=== PATIENT | male | born 1990 | race Caucasian/White ===

== ENCOUNTER 2017-10-30 20:31 | Emergency (ER) | payer BC ==
[2017-10-30] MEDS ORDERED: Ondansetron 4 MG/2 ML SDV IVPUSH ONE (20:53)
[2017-10-30] MEDS ORDERED: Ketorolac 30 MG/ML SDV IVPUSH ONE (20:55)
[2017-10-30] MEDS ORDERED: HYDROmorphone 0.5 MG/0.5 ML SYRINGE IVPUSH ONE ×2 (20:55→22:46)
[2017-10-30] MEDS ORDERED: Sodium Chloride 0.9% 1,000 ML IV SCH (21:00)
[2017-10-30] MEDS: Sodium Chloride 0.9% 10 ML Syringe FLUSH PRN ×2 (21:19→22:10)
--- NOTE | 2017-10-30 22:26 | EDM.PDOC ---
ED HPI GENERAL MEDICAL PROBLEM - General Chief Complaint: Abdominal Pain Stated Complaint: RIGHT SIDE PAIN Time Seen by Provider: 10/30/17 20:44 Source of Information: Reports: Patient History Limitations: Reports: No Limitations - History of Present Illness INITIAL COMMENTS - FREE TEXT/NARRATIVE: The patient presents with right lower abdominal pain, right flank pain that radiates to his right testicle. He has chills and subjective fever. He has nausea and vomiting. He has no history of kidney stones. He has no chest pain or shortness of breath. He still has his gallbladder and appendix. Onset: Sudden Duration: Hour(s): (2) Location: Reports: Abdomen (right lower and flank pain) Quality: Reports: Sharp Severity: Severe Improves with: Reports: None Worsens with: Reports: None Associated Symptoms: Reports: Nausea/Vomiting. Denies: Chest Pain, Fever/Chills , Headaches, Shortness of Breath Right Lower Abdominal Pain Score (Numeric/FACES): 8 - Related Data Allergies Allergy/AdvReac Type Severity Reaction Status Date / Time No Known Allergies Allergy Verified 10/30/17 20:38 Home Meds: Home Meds . [No Known Home Meds] 10/30/17 [History] Past Medical History - Past Surgical History GI Surgical History: Reports: Other (See Below) Other GI Surgeries/Procedures: hemmorhoids lanced Social & Family History - Tobacco Use Smoking Status *Q: Never Smoker - Caffeine Use Caffeine Use: Reports: Coffee, Soda - Recreational Drug Use Recreational Drug Use: No ED ROS GENERAL - Review of Systems Review Of Systems: See Below Constitutional: Reports: Fever, Chills HEENT: Reports: No Symptoms Respiratory: Reports: No Symptoms Cardiovascular: Reports: No Symptoms Endocrine: Reports: No Symptoms GI/Abdominal: Reports: Abdominal Pain, Nausea, Vomiting. Denies: Diarrhea : Reports: Flank Pain (right side). Denies: Dysuria, Frequency, Urgency Musculoskeletal: Reports: No Symptoms Skin: Reports: No Symptoms ED EXAM, GI/ABD - Physical Exam Exam: See Below Exam Limited By: No Limitations General Appearance: Alert, No Apparent Distress Ears: Normal External Exam Nose: Normal Inspection Head: Atraumatic, Normocephalic Neck: Normal Inspection Respiratory/Chest: No Respiratory Distress, Lungs Clear, Normal Breath Sounds Cardiovascular: Regular Rate, Rhythm, No Edema, No Murmur GI/Abdominal Exam: Soft, No Organomegaly, No Mass, Tender (Mild tenderness to the right lower abdomen) Back Exam: CVA Tenderness (R) (Mild) Extremities: Normal Inspection Course - Vital Signs Last Recorded V/S: Last Vital Signs Temp 99.2 F 10/30/17 20:36 Pulse 80 10/30/17 20:36 Resp 18 10/30/17 20:36 BP 168/147 H 10/30/17 20:36 Pulse Ox 100 10/30/17 20:36 - Orders/Labs/Meds Orders: Active Orders 24 hr Category Date Time Status Peripheral IV Care [RC] . DIRECTED Care 10/30/17 20:54 Active Abdomen Pelvis wo Cont [CT] Stat Exams 10/30/17 20:53 Taken HYDROmorphone [Dilaudid] Med 10/30/17 22:46 Once 0.5 mg IVPUSH ONETIME ONE Sodium Chloride 0.9% [Normal Saline] 1,000 ml Med 10/30/17 21:00 Active IV ASDIRECTED Sodium Chloride 0.9% [Saline Flush] Med 10/30/17 20:53 Active 10 ml FLUSH ASDIRECTED PRN ED Antiemetic Medication Reflex [OM.PC] Stat Oth 10/30/17 20:53 Ordered Peripheral IV Insertion Adult [OM.PC] Stat Oth 10/30/17 20:53 Ordered Medication Orders Sodium Chloride (Normal Saline) 1,000 mls @ 125 mls/hr IV ASDIRECTED DENILSON Last Admin: 10/30/17 21:17 Dose: 125 mls/hr Sodium Chloride (Saline Flush) 10 ml FLUSH ASDIRECTED PRN PRN Reason: Keep Vein Open Last Admin: 10/30/17 22:10 Dose: 10 ml Admin: 10/30/17 21:19 Dose: 10 ml Labs: Laboratory Tests 10/30/17 10/30/17 10/30/17 Range/Units 21:10 21:10 22:25 WBC 5.39 (4.23-9.07) K/mm3 RBC 4.83 (4.63-6.08) M/mm3 Hgb 14.3 (13.7-17.5) gm/L Hct 41.0 (40.1-51.0) % MCV 84.9 (79.0-92.2) fl MCH 29.6 (25.7-32.2) pg MCHC 34.9 (32.2-35.5) g/dl RDW Std Deviation 40.8 (35.1-43.9) fL Plt Count 154 L (163-337) K/mm3 MPV 10.4 (9.4-12.3) fl Neut % (Auto) 54.7 (34.0-67.9) % Lymph % (Auto) 34.3 (21.8-53.1) % [place] % (Auto) 8.0 (5.3-12.2) % Eos % (Auto) 2.2 (0.8-7.0) Baso % (Auto) 0.6 (0.1-1.2) % Neut # (Auto) 2.95 (1.78-5.38) K/mm3 Lymph # (Auto) 1.85 (1.32-3.57) K/mm3 [place] # (Auto) 0.43 (0.30-0.82) K/mm3 Eos # (Auto) 0.12 (0.04-0.54) K/mm3 Baso # (Auto) 0.03 (0.01-0.08) K/mm3 Sodium 141 (136-145) mEq/L Potassium 3.6 (3.5-5.1) mEq/L Chloride 105 (98-107) mEq/L Carbon Dioxide 26 (21-32) mEq/L Anion Gap 13.6 (5-15) BUN 9 (7-18) mg/dL Creatinine 1.1 (0.7-1.3) mg/dL Est Cr Clr Drug Dosing 97.93 mL/min Estimated GFR (MDRD) > 60 (>60) mL/min BUN/Creatinine Ratio 8.2 L (14-18) Glucose 109 H (74-106) mg/dL Calcium 8.6 (8.5-10.1) mg/dL Total Bilirubin 0.4 (0.2-1.0) mg/dL AST 17 (15-37) U/L ALT 16 (16-63) U/L Alkaline Phosphatase 50 (46-116) U/L Total Protein 7.0 (6.4-8.2) g/dl Albumin 4.0 (3.4-5.0) g/dl Globulin 3.0 gm/dL Albumin/Globulin Ratio 1.3 (1-2) Lipase 139 (73-393) U/L Urine Color Lydia H (Yellow) Urine Appearance Turbid H (Clear) Urine pH 6.0 (5.0-8.0) Ur Specific [place] > or = 1.030 (1.005-1.030) Urine Protein 3+ H (Negative) Urine Glucose (UA) Negative (Negative) Urine Ketones Trace H (Negative) Urine Occult Blood 3+ H (Negative) Urine Nitrite Negative (Negative) Urine Bilirubin 2+ H (Negative) Urine Urobilinogen 1.0 (0.2-1.0) Ur Leukocyte Esterase Negative (Negative) Urine RBC >100 H (0-5) /hpf Urine WBC 0-5 (0-5) /hpf Ur Epithelial Cells Not seen (0-5) /hpf Urine Bacteria Few (FEW) /hpf Urine Mucus Moderate H (FEW) /hpf Meds: Medications Generic Name Dose Route Start Last Admin Trade Name Freq PRN Reason Stop Dose Admin Sodium Chloride 1,000 mls @ 125 mls/hr 10/30/17 21:00 10/30/17 21:17 Normal Saline IV 125 mls/hr ASDIRECTED DENILSON Administration Sodium Chloride 10 ml 10/30/17 20:53 10/30/17 22:10 Saline Flush FLUSH 10 ml ASDIRECTED PRN Administration Keep Vein Open Discontinued Medications Generic Name Dose Route Start Last Admin Trade Name Freq PRN Reason Stop Dose Admin Hydromorphone HCl 0.5 mg 10/30/17 20:55 10/30/17 22:07 Dilaudid IVPUSH 10/30/17 20:56 0.5 mg ONETIME ONE Administration Ketorolac Tromethamine 30 mg 10/30/17 20:55 10/30/17 21:20 Toradol IVPUSH 10/30/17 20:56 30 mg ONETIME ONE Administration Ondansetron HCl 4 mg 10/30/17 20:53 10/30/17 21:18 Zofran IVPUSH 10/30/17 20:54 4 mg ONETIME ONE Administration - Re-Assessments/Exams Free Text/Narrative Re-Assessment/Exam: 10/30/17 22:24 I ordered an IV NS at 125mL/hr, zofran 4mg IV, dilaudid 0.5mg IV, toradol 30mg IV, labs, UA and a CT of his abdomen and pelvis. His CBC and CMP look good. His lipase is normal. His CT shows a 4mm stone proximal right ureter causing mild hydronephrosis. I am waiting for a UA. He thinks he can go now. 10/30/17 22:46 His UA shows blood but no UTI. I will give him more dilaudid. The pain is coming back. I will also give him prescriptions for flomax and hydrocodone. Departure - Departure Time of Disposition: 22:50 Disposition: Home, Self-Care 01 Condition: Good Clinical Impression: Kidney stone on right side, Ureteral colic, Ureteral calculus, right - Discharge Information *PRESCRIPTION DRUG MONITORING PROGRAM REVIEWED*: No *COPY OF PRESCRIPTION DRUG MONITORING REPORT IN PATIENT [place]: No Referrals: PCP,None [Primary Care Provider] - Neil Del Toro MD [Ordering Only Provider] - 1 Week Forms: ED Department Discharge Additional Instructions: Drink plenty of water. Take the flomax daily. That will help relax the ureter to help it move. Take an antiinflammatory such as motrin or aleve for the pain. If that does not help, try some hydrocodone for pain. Please return if you are worse. Follow up with Dr Russell a urologist in [place] if you do not pass it in a week. - My Orders Last 24 Hours: My Active Orders 10/30/17 20:53 Abdomen Pelvis wo Cont [CT] Stat Sodium Chloride 0.9% [Saline Flush] 10 ml FLUSH ASDIRECTED PRN ED Antiemetic Medication Reflex [OM.PC] Stat Peripheral IV Insertion Adult [OM.PC] Stat 10/30/17 20:54 Peripheral IV Care [RC] . DIRECTED 10/30/17 21:00 Sodium Chloride 0.9% [Normal Saline] 1,000 ml IV ASDIRECTED 10/30/17 22:46 HYDROmorphone [Dilaudid] 0.5 mg IVPUSH ONETIME ONE - Assessment/Plan Last 24 Hours: My Active Orders 10/30/17 20:53 Abdomen Pelvis wo Cont [CT] Stat Sodium Chloride 0.9% [Saline Flush] 10 ml FLUSH ASDIRECTED PRN ED Antiemetic Medication Reflex [OM.PC] Stat Peripheral IV Insertion Adult [OM.PC] Stat 10/30/17 20:54 Peripheral IV Care [RC] . DIRECTED 10/30/17 21:00 Sodium Chloride 0.9% [Normal Saline] 1,000 ml IV ASDIRECTED 10/30/17 22:46 HYDROmorphone [Dilaudid] 0.5 mg IVPUSH ONETIME ONE
--- NOTE | 2017-10-31 11:43 | CT ---
CT abdomen and pelvis Technique: Multiple axial sections were obtained from above the dome of the diaphragm inferiorly through the pubic symphysis. Intravenous and oral contrast was not utilized. Study has been performed as a ureteral stone protocol. Findings: Proximal hydronephrosis is seen of the right kidney and ureter. This finding is caused by a 4.6 mm stone within the proximal right ureter. No other abnormal calcifications are seen along the course of the ureters. No renal calculi are seen. Visualized lung bases are clear. Liver shows no focal parenchymal abnormality. Spleen appears within normal limits. Adrenal glands are unremarkable. Pancreas shows no discrete abnormality. Gallbladder contains no calcified gallstones. Aorta shows no aneurysm. No retroperitoneal adenopathy or mesenteric abnormalities are seen. No pelvic mass or adenopathy is seen. Appendix is not definitely visualized. No free fluid or inflammatory change is seen. Bone window settings were reviewed which appear within normal limits for the patient's age. Impression: 1. 4.6 mm obstructing stone within the proximal right ureter causing proximal hydronephrosis. 2. No additional abnormality is identified on noncontrast CT study of the abdomen and pelvis. Diagnostic code #3 I agree with preliminary report from [facility], finalized on 10/30/17, 11:03 PM Central Time
== END 2017-10-30 23:22 | disposition home or self-care (01) ==
LOC: JD.ED 20:31
DX: N13.2 Hydronephrosis with renal and ureteral calculous obstruction (principal)
CPT/HCPCS: 36415; 74176; 80053; 81001; 83690; 85025; 96361; 96374; 96375; 96376; 99284; J1170; J1885; J2405; J7040; J7050

== ENCOUNTER 2020-07-08 20:53 | Emergency (ER) | payer BC, OTHER ==
--- NOTE | 2020-07-08 21:44 | EDM.PDOC ---
ED HPI GENERAL MEDICAL PROBLEM - General Chief Complaint: Genitourinary Problem Stated Complaint: GROIN PAIN Time Seen by Provider: 07/08/20 21:26 Source of Information: Reports: Patient History Limitations: Reports: No Limitations - History of Present Illness INITIAL COMMENTS - FREE TEXT/NARRATIVE: 29-year-old male presents to the emergency department today with complaints of nodules in his left scrotum. Patient states he was seen approximately 2 weeks ago at [facility] and had a similar complaint and an ultrasound of the scrotum was completed. He was told he had cysts in his scrotum and to just keep an eye on things. He states that today he is noticed more pain to his scrotum with any shift and movement when he sitting and what he states is a ropelike nodule in his left scrotum. He denies any fever, chills, nausea, vomiting, cough, or diarrhea. He states he has not taken anything for the discomfort as he does not like to take any types of pills or medications. He denies any issues with voiding or ejaculation. He denies any difficulty obtaining an erection. He denies any possible chance that he could have a STI. - Related Data Allergies Allergy/AdvReac Type Severity Reaction Status Date / Time No Known Allergies Allergy Verified 07/08/20 21:03 Home Meds: Home Meds . [No Known Home Meds] 10/30/17 [History] Past Medical History Genitourinary History: Reports: Other (See Below) Other Genitourinary History: testicular cyst - Past Surgical History GI Surgical History: Reports: Other (See Below) Other GI Surgeries/Procedures: hemmorhoids lanced Social & Family History - Tobacco Use Tobacco Use Status *Q: Never Tobacco User Second Hand Smoke Exposure: No - Caffeine Use Caffeine Use: Reports: Coffee, Soda - Recreational Drug Use Recreational Drug Use: No ED ROS GENERAL - Review of Systems Review Of Systems: Comprehensive ROS is negative, except as noted in HPI. ED EXAM, RENAL/ - Physical Exam Exam: See Below Exam Limited By: No Limitations General Appearance: Alert, WD/WN, No Apparent Distress Ears: Normal External Exam, Hearing Grossly Normal Nose: Normal Inspection Throat/Mouth: Normal Inspection, Normal Lips, Normal Voice, No Airway Compromise Head: Atraumatic Neck: Normal Inspection, Supple Respiratory/Chest: No Respiratory Distress, No Accessory Muscle Use Cardiovascular: Normal Peripheral Pulses, Regular Rate, Rhythm, No Murmur GI/Abdominal: No Distention (Male) Exam: No Hernia, Normal Inspection, Scrotum Tenderness (L), Other (pea sized and small pebble sized mass noted to left scrotum along the vas deferans) Rectal (Males) Exam: Deferred Back Exam: Normal Inspection Extremities: Normal Inspection Neurological: Alert, Oriented, Normal Cognition Psychiatric: Normal Affect, Normal Mood Skin Exam: Warm, Dry, Intact, Normal Color, No Rash Lymphatic: No Adenopathy Course - Vital Signs Text/Narrative:: I have ordered for the patient to have a testicular ultrasound. Last Recorded V/S: Last Vital Signs Temp 98.4 F 07/08/20 21:01 Pulse 98 07/08/20 21:01 Resp 16 07/08/20 21:01 BP 148/95 H 07/08/20 21:01 Pulse Ox 97 07/08/20 21:01 - Orders/Labs/Meds Orders: Active Orders 24 hr Category Date Time Status Testicular US [Scrotum and Contents] [US] Stat Exams 07/08/20 21:36 Taken - Re-Assessments/Exams Free Text/Narrative Re-Assessment/Exam: 07/08/20 23:29 Ultrasound of the scrotum vRad radiologist impression: 1. No evidence for intratesticular mass or torsion. 2. Tubular densities within the midline superior to the testicles which have the appearance of thrombosed venous structures. 3. Small left-sided hydrocele I have consulted with Dr. Fermin on this and he states that there is nothing urgent at this time, however, I will have our community development worker have [facility] send the ultrasound that was completed two weeks ago to this hospital so that our radiologist can compare them in the morning. Patient will be discharged home with recommendations that he follow-up with his primary care provider within a week. Departure - Departure Time of Disposition: 23:32 Disposition: Home, Self-Care 01 Condition: Good Clinical Impression: Scrotal anomaly - Discharge Information Referrals: Monika Hartman NP [Primary Care Provider] - Forms: ED Department Discharge Additional Instructions: You were seen in the emergency department with complaints of lumps noted in your left scrotum. An ultrasound was completed and it does not show any torsion or mass at this time however we will need to compare it to your previous ultrasound that was completed at [place]. Recommend that you follow-up with your primary care provider in about a week. Should your condition worsen or change, do not hesitate returning to the emergency department. Sepsis Event Note (ED) - Evaluation Sepsis Screening Result: No Definite Risk - Focused Exam Vital Signs: Vital Signs Temp Pulse Resp BP Pulse Ox 07/08/20 21:01 98.4 F 98 16 148/95 H 97 - My Orders Last 24 Hours: My Active Orders 07/08/20 21:36 Testicular US [Scrotum and Contents] [US] Stat - Assessment/Plan Last 24 Hours: My Active Orders 07/08/20 21:36 Testicular US [Scrotum and Contents] [US] Stat
--- NOTE | 2020-07-09 08:44 | US ---
Testicular ultrasound: Multiple real-time images of both testicles were obtained. Comparison: Prior CT abdomen and pelvis exam of 10/30/17. Both testicles are seen and appear homogeneous in appearance. No intratesticular nodule is seen. Normal arterial and venous blood flow are noted. Small epididymal cyst is is noted on the right side measuring 4 mm. Varicocele is noted on the left side. Small solid abnormality is noted within the upper mid aspect of the scrotal sac which most likely represents a small occluded venous structure. Small bilateral hydroceles are noted. Measurements: Right testicle: 4.8 x 2.2 x 3.4 cm Left testicle: 4.6 x 2.3 x 3.3 cm Impression: 1. No intratesticular nodule is seen. 2. Left-sided varicocele. Small 4 mm epididymal cyst on the right side. Small bilateral hydroceles are seen. 3. Soft tissue nodule within the upper mid aspect of the scrotal sac most likely representing thrombosed venous structure. Diagnostic code #3 I agree with preliminary report from [facility] finalized on 07/09/20, 12:09 AM CDT, code 1
== END 2020-07-08 23:47 | disposition home or self-care (01) ==
LOC: JD.ED 20:53
DX: N50.89 Other specified disorders of the male genital organs (principal)
CPT/HCPCS: 76870; 76870-26; 93975; 99283; 99284-25

== ENCOUNTER 2020-08-20 11:42 | Emergency (ER) | payer BC ==
[2020-08-20] MEDS ORDERED: LORazepam 0.5 MG Tab PO ONE (12:15)
--- NOTE | 2020-08-20 12:24 | EDM.PDOCBH ---
ED HPI GENERAL MEDICAL PROBLEM - General Chief Complaint: Behavioral/Psych Stated Complaint: ANXIETY Time Seen by Provider: 08/20/20 11:52 Source of Information: Reports: Patient, RN Notes Reviewed History Limitations: Reports: No Limitations - History of Present Illness INITIAL COMMENTS - FREE TEXT/NARRATIVE: Patient is a 29-year-old male presents to the ER for his generalized anxiety. States that he has a history of ADD, used to be on medications when he was in high school but stopped taking that medication just after graduating high school. He notes he has been having ongoing issues with anxiety as of late, he has had a recent break-up with his girlfriend, and he notes that he is feeling anxiety about pretty much every aspect of daily life, he states he is not really eating much due to the anxiety, he is not sleeping much due to the anxiety. Notes that he worries about "every little thing", he also feels like his mind just will not shut down. He does have an appointment with Monika Hartman in a few weeks for evaluation however he notes that everything seems to be getting out of hand and he needed something done sooner rather than later. Patient denies any other sick-like symptoms, fever/chills, cough/shortness of breath, nausea/vomiting/diarrhea. Patient is denying any sort of palpitations or chest pain as well. - Related Data Allergies Allergy/AdvReac Type Severity Reaction Status Date / Time No Known Allergies Allergy Verified 08/20/20 11:55 Home Meds: Home Meds Escitalopram Oxalate 5 mg PO DAILY #30 tablet 08/20/20 [Rx] LORazepam [Ativan] 1 mg PO BEDTIME PRN #30 tab 08/20/20 [Rx] Past Medical History Genitourinary History: Reports: Other (See Below) Other Genitourinary History: testicular cyst Psychiatric History: Reports: ADD, Anxiety - Infectious Disease History Infectious Disease History: Reports: Chicken Pox - Past Surgical History HEENT Surgical History: Reports: Oral Surgery GI Surgical History: Reports: Other (See Below) Other GI Surgeries/Procedures: hemmorhoids lanced Social & Family History - Family History Family Medical History: No Pertinent Family History - Tobacco Use Tobacco Use Status *Q: Never Tobacco User Second Hand Smoke Exposure: No - Caffeine Use Caffeine Use: Reports: Energy Drinks, Soda - Recreational Drug Use Recreational Drug Use: No ED ROS GENERAL - Review of Systems Review Of Systems: Comprehensive ROS is negative, except as noted in HPI. ED EXAM, BEHAVIORAL HEALTH - Physical Exam Exam: See Below Exam Limited By: No Limitations General Appearance: Alert, WD/WN, No Apparent Distress, Anxious (generalized) Respiratory/Chest: No Respiratory Distress, Lungs Clear, Normal Breath Sounds, No Accessory Muscle Use, Chest Non-Tender Cardiovascular: Normal Peripheral Pulses, Regular Rate, Rhythm, No Edema GI/Abdominal: Normal Bowel Sounds, Soft, Non-Tender, No Distention, No Mass Extremities: Normal Inspection, Normal Capillary Refill Neurological: Alert, Normal Mood/Affect, Normal Cognition, No Motor/Sensory Deficits Psychiatric: Alert, Normal Affect, Normal Cognition, Normal Mood, Oriented Skin Exam: Warm, Dry, Intact, Normal color, No rash COURSE, BEHAVIORAL HEALTH COMP - Course Vital Signs: Last Vital Signs Temp 97.2 F 08/20/20 11:51 Pulse 96 08/20/20 11:51 Resp 18 08/20/20 11:51 BP 132/94 H 08/20/20 11:51 Pulse Ox 96 08/20/20 11:51 Orders, Labs, Meds: Medications Discontinued Medications Generic Name Dose Route Start Last Admin Trade Name Freq PRN Reason Stop Dose Admin Lorazepam 1 mg 08/20/20 12:15 08/20/20 12:29 Lorazepam 0.5 Mg Tab PO 08/20/20 12:16 1 mg ONETIME ONE Administration Discharge vs Psych Eval/Treatment:: 08/20/20 12:23 Patient presents to the ER for his anxiety, for today's purposes we will give him Ativan for initial management, and start him on 5 mg Escitalopram, and 1 mg p.o. Ativan at night for treatment at this time. I did go over worrisome symptoms regarding escitalopram, patient verbalized understanding. Mother was also present in the room, and verbalized understanding of the treatment plan. 08/20/20 13:25 Patient was reassessed at bedside, states he is feeling better, the anxiety has lessened quite a bit. Departure - Departure Time of Disposition: 13:11 Disposition: Home, Self-Care 01 Condition: Good Clinical Impression: Anxiety - Discharge Information *PRESCRIPTION DRUG MONITORING PROGRAM REVIEWED*: Yes *COPY OF PRESCRIPTION DRUG MONITORING REPORT IN PATIENT [place]: No Prescriptions: LORazepam [Ativan] 1 mg PO BEDTIME PRN #30 tab PRN Reason: Anxiety Escitalopram Oxalate 5 mg PO DAILY #30 tablet Instructions: Managing Anxiety, Adult Referrals: Monika Hartman NP [Primary Care Provider] - Forms: ED Department Discharge Additional Instructions: You were evaluated in the ER today for your anxiety symptoms. You have been started on 2 different medications, one will be lorazepam (Ativan), this will be 1 tablet by mouth at night for anxiety. This medication is for acute anxiety, it can be somewhat sedating, hence why this should be taken at night only. The other medication is escitalopram (Lexapro), 1 tablet daily for ongoing anxiety management. This will be a long-term medication, and you may not notice benefit for at least 3 to 4 weeks. Please keep taking it unless you are directed to stop taking it by different provider. These medications do have some serious side effects, to include suicidal ideations, sexual dysfunction, nausea/vomiting/diarrhea. If there are any worrisome symptoms like suicidal ideations, please seek care by clinician for evaluation; As your medication may need to be switched to a different one. This medication was electronically sent to the [place] pharmacy located in the [employer]. Do not hesitate to return to the ER at any time if symptoms change or worsen. Sepsis Event Note (ED) - Evaluation Sepsis Screening Result: No Definite Risk - Focused Exam Vital Signs: Vital Signs Temp Pulse Resp BP Pulse Ox 08/20/20 11:51 97.2 F 96 18 132/94 H 96
== END 2020-08-20 13:24 | disposition home or self-care (01) ==
LOC: JD.ED 11:42
DX: F41.1 Generalized anxiety disorder (principal)
CPT/HCPCS: 99283; A9270